=== PATIENT | female | born 1970 | race Caucasian/White ===

== ENCOUNTER 2022-08-13 16:12 | Emergency (ER) | payer SELFPAY ==
[~2022-08-13] VITALS: Ht 154.9 cm; Wt 93.0 kg
[2022-08-13 16:21] VITALS: BP 158/106
--- NOTE | 2022-08-13 16:30 | NUR ---
Patient eloped from facility. ER MD notified.
--- NOTE | 2022-08-13 16:30 | NUR ---
EKG NOT PRFORMED
[2022-08-13] MEDS ORDERED: BENAZEPRIL HCL 10 MG TABLET PO ONE (17:00)
== END 2022-08-13 18:00 | disposition left against medical advice (07) ==
LOC: ER 16:16
DX: I10 Essential (primary) hypertension (principal); Z87.442 Personal history of urinary calculi